=== PATIENT | female | born 1960 | race Caucasian/White ===

== ENCOUNTER 2018-01-28 08:46 | Day surgery (SDC) | payer BC ==
[~2018-01-28 08:46] MED LIST: Lactated Ringers 1,000 ML IV SCH; Lidocaine 1%/Sod Bicarbonate in NS 8.4% 1 ML Syringe IDERM PRN; Sodium Chloride 0.9% 10 ML Syringe FLUSH PRN
--- NOTE | 2018-01-28 10:35 | PCM.PREANE ---
Preanesthetic Assessment - Anesthesia/Transfusion/Family Hx Anesthesia History: No Prior Anesthesia Transfusion History: No Prior Transfusion(s) - Review of Systems General: No Symptoms Pulmonary: No Symptoms Cardiovascular: No Symptoms Gastrointestinal: No Symptoms Neurological: No Symptoms Other: Reports: None - Physical Assessment NPO Status Date: 01/27/18 NPO Status Time: 21:00 Pulse: 57 O2 Sat by Pulse Oximetry: 97 Respiratory Rate: 16 Blood Pressure: 128/69 Temperature: 98.7 C ASA Class: 2 Mental Status: Alert & Oriented x3 Airway Class: Mallampati = 1 Dentition: Reports: Normal Dentition Thyro-Mental Finger Breadths: 3 Mouth Opening Finger Breadths: 3 ROM/Head Extension: Full Lungs: Clear to Auscultation, Normal Respiratory Effort Cardiovascular: Regular Rate, Regular Rhythm - Lab Values: Laboratory Last Values POC Glucose 128 mg/dL (70-105) H 01/28/18 09:38 - Allergies Allergies/Adverse Reactions: Allergies Allergy/AdvReac Type Severity Reaction Status Date / Time amoxicillin [From Augmentin] Allergy Cannot Verified 01/27/18 14:03 Remember animal dander Allergy Cannot Verified 01/27/18 14:03 Remember bacitracin Allergy Cannot Verified 01/27/18 14:03 Remember clavulanic acid Allergy Cannot Verified 01/27/18 14:03 [From Augmentin] Remember doxazosin [From Cardura] Allergy Cannot Verified 01/27/18 14:03 Remember lisinopril Allergy Cannot Verified 01/27/18 14:03 Remember Sulfa (Sulfonamide Allergy Rash Verified 01/27/18 14:03 Antibiotics) zinc oxide Allergy Cannot Verified 01/27/18 14:03 Remember - Anesthesia Plan Beta Shashi: Atenolol Med Last Dose Date: 01/28/18 Med Last Dose Time: 07:30 - Acknowledgements Anesthesia Type Planned: MAC Pt an Appropriate Candidate for the Planned Anesthesia: Yes Alternatives and Risks of Anesthesia Discussed w Pt/Guardian: Yes Pt/Guardian Understands and Agrees with Anesthesia Plan: Yes PreAnesthesia Questionnaire HEENT History: Reports: Impaired Vision Cardiovascular History: Reports: High Cholesterol, Hypertension, Other (See Below) Other Cardiovascular History: edema Respiratory History: Reports: Other (See Below) Other Respiratory History: cough, not bothersome for pt at this time Gastrointestinal History: Reports: Gastritis, GERD (treated successfully with Prilosec), Other (See Below) Other Gastrointestinal History: c diff history Genitourinary History: Reports: None [employer]IST History: Reports: None Musculoskeletal History: Reports: Other (See Below) Other Musculoskeletal History: polymyalgia rheumatica Neurological History: Reports: None Psychiatric History: Reports: Addiction, Depression Endocrine/Metabolic History: Reports: Diabetes, Type II (BS 128) Other Endocrine/Metabolic History: Prediabetic, but was told that she was not diabetic Hematologic History: Reports: None Immunologic History: Reports: None Oncologic (Cancer) History: Reports: None Dermatologic History: Reports: Other (See Below) Other Dermatologic History: eczema - Infectious Disease History Infectious Disease History: Reports: C-Difficile - Past Surgical History Head Surgeries/Procedures: Reports: None (no previous surgeries) HEENT Surgical History: Reports: None Cardiovascular Surgical History: Reports: None Respiratory Surgical History: Reports: None GI Surgical History: Reports: None Female Surgical History: Reports: None Male Surgical History: Reports: None Endocrine Surgical History: Reports: None Neurological Surgical History: Reports: None Musculoskeletal Surgical History: Reports: None Oncologic Surgical History: Reports: None - SUBSTANCE USE Smoking Status *Q: Never Smoker Recreational Drug Use History: No - HOME MEDS Home Medications: Home Meds Olmesartan [Benicar] 20 mg PO DAILY 03/04/15 [History] ALPRAZolam [Xanax] 0.25 mg PO Q6H PRN 05/27/16 [History] Betamethasone/Propylene Glyc [Betamethasone DP Aug 0.05%] 1 applic TP BID PRN [History] Multivitamin/Iron/Folic Acid [Centrum Complete Multivit] 1 each PO DAILY [History] Sertraline [Zoloft] 50 mg PO DAILY 05/27/16 [History] Atenolol [Tenormin] 25 mg PO DAILY 01/27/18 [History] Cyanocobalamin (Vitamin B-12) [Vitamin B-12] 1,000 mcg PO DAILY 01/27/18 [ History] Omeprazole Magnesium [Prilosec Otc] 20 mg PO DAILY 01/27/18 [History] Rosuvastatin [Crestor] 10 mg PO DAILY 01/27/18 [History] metFORMIN [Glucophage] 2,000 mg PO DAILY 01/27/18 [History] predniSONE [Prednisone] 10 mg PO DAILY 01/27/18 [History] - CURRENT (IN HOUSE) MEDS Current Meds: Current Medications Lactated Ringer's (Ringers, Lactated) 1,000 mls @ 125 mls/hr IV ASDIRECTED DOMENIC Stop: 01/28/18 23:00 Lidocaine/Sodium Bicarbonate (Buffered Lidocaine 1% In Ns 8.4%) 0.25 ml IDERM ONETIME PRN PRN Reason: Prior to IV Start Stop: 01/28/18 18:00 Sodium Chloride (Saline Flush) 10 ml FLUSH ASDIRECTED PRN PRN Reason: Keep Vein Open Stop: 01/28/18 18:00
[2018-01-28] MEDS ORDERED: Lidocaine 1% 4 ML ONE (10:48)
[2018-01-28] MEDS ORDERED: Propofol 200 MG/20 ML SDV ONE (10:48)
--- NOTE | 2018-01-28 12:04 | PCM.OPNOTE ---
- General Post-Op/Procedure Note Date of Surgery/Procedure: 01/28/18 Operative Procedure(s): colonoscopy to cecum with polypectomy Findings: transverse colon polyp and rectal polyp Pre Op Diagnosis: positive colorectal cancer screening test Post-Op Diagnosis: same Anesthesia Technique: MAC Primary Surgeon: Verónica Mccoy Anesthesia Provider: Pili Uribe Output, Urine Amount: 0 EBL in mLs: 0 Drain/Tube Comments:: none Complications: none apparent Condition: Good
--- NOTE | 2018-01-28 12:05 | PCM.PRNOTE ---
- Free Text/Narrative Note: Operative Report Date of Surgery/Procedure: January 28, 2018 Operative Procedure: Colonoscopy to cecum with polypectomy Pre Op Diagnosis: colorectal cancer screening with positive colorectal cancer screening test Post-Op Diagnosis: Same Surgeon: Verónica Mccoy Anesthesia Technique: MAC Anesthesia Provider: Pelon Uribe CRNA IV Fluid Replacement, Intraop: See anesthesia record Output, Urine Amount: 0 cc EBL : 0 cc Findings: Transverse colon polyp and rectal polyp Specimens: Transverse colon polyp and rectal polyp Indication: The patient is a 57 year-old lady who presented to the outpatient clinic requesting colorectal cancer screening. She had undergone an additional colorectal cancer screening test that was positive and was seeking a colonoscopy. We discussed the procedure of a diagnostic colonoscopy including the polypectomy and biopsy. Risks of bleeding and perforation were discussed, the patient understood and wished to proceed. Written and consent was obtained Description of the procedure: The patient was brought to the endoscopy suite and placed in the left lateral decubitus position. Appropriate monitors were applied. The patient was given MAC anesthesia. An anorectal examination was performed, revealing external skin tags. The scope was placed into the rectum and advanced to cecum with no difficulty requiring. The patients cecum was entered, and the ileocecal valve and appendiceal orifice were identified and normal. At this point, the scope was withdrawn, paying careful attention to the mucosa. The patient had adequate bowel prep, allowing for visualization of 80-85% of the mucosa. The patient did have several episodes of coughing and colonic spasm during the procedure which did not allow for optimal evaluation of the mucosa. A transverse colon polyp was noted and removed with cold biopsy forceps. In addition, a rectal polyp was found and biopsied with cold biopsy forceps. These specimens for were sent for routine pathology. In the rectum, the scope was retroflexed and no other abnormalities were noted, except for some hemorrhoidal tissue. The scope was placed back in the lumen and the excess air was aspirated. The patient tolerated the procedure well. Complications: none apparent Condition: Good, transported to PACU in stable condition Verónica Mccoy MD General Surgery
--- NOTE | 2018-01-28 12:09 | PCM48HPAN ---
Post Anesthesia Note - EVALUATION WITHIN 48HRS OF ANESTHETIC Vital Signs in Normal Range: Yes Patient Participated in Evaluation: Yes Respiratory Function Stable: Yes Airway Patent: Yes Cardiovascular Function Stable: Yes Hydration Status Stable: Yes Pain Control Satisfactory: Yes Nausea and Vomiting Control Satisfactory: Yes Mental Status Recovered: Yes Pulse Rate: 68 SaO2: 99 Resp Rate: 20 Temperature: 98 C Blood Pressure: 103/64
[2018-01-28 13:26] VITALS: BP 112/69
== END 2018-01-28 13:00 | disposition home or self-care (01) ==
LOC: JD.SDS 08:46
PROVIDERS: ATTEND Surgery
DX: Z12.11 Encounter for screening for malignant neoplasm of colon (principal); D12.8 Benign neoplasm of rectum; K63.5 Polyp of colon; K64.9 Unspecified hemorrhoids; I10 Essential (primary) hypertension; M35.3 Polymyalgia rheumatica; E11.9 Type 2 diabetes mellitus without complications; E78.00 Pure hypercholesterolemia, unspecified; K29.30 Chronic superficial gastritis without bleeding; Z79.84 Long term (current) use of oral hypoglycemic drugs; Z79.899 Other long term (current) drug therapy; Z88.1 Allergy status to other antibiotic agents; Z88.2 Allergy status to sulfonamides; Z88.8 Allergy status to other drugs, medicaments and biological substances; Z91.048 Other nonmedicinal substance allergy status
CPT/HCPCS: 45380; 82962; J2704; J7120; 00811; J2001

== ENCOUNTER 2023-09-21 23:55 | Emergency (ER) | payer BC ==
[2023-09-22 00:12] LABS: BASOPHILS PERCENT AUTO 0.5 % (0.0-1.0); EOSINOPHILS ABSOLUTE AUTO 0.1 K/mm3 (0.0-0.4); EOSINOPHILS PERCENT AUTO 1.2 % (0.0-6.0); HEMATOCRIT 36.1 % (37.0-47.0); HEMOGLOBIN 12.3 gm/dl (12.0-16.0); IMMATURE GRAN ABSOLUTE AUTO 0.02 K/mm3 (0.00-0.05); IMMATURE GRAN PERCENT AUTO 0.2 % (0.0-0.4); LYMPHOCYTES ABSOLUTE AUTO 1.3 K/mm3 (1.0-4.8); LYMPHOCYTES PERCENT AUTO 16.2 % (24.0-44.0); MEAN CORPUSCULAR HEMOGLOBIN 35.2 pg (28.0-32.0); MEAN CORPUSCULAR HGB CONC 34.1 g/dl (32.0-36.0); MEAN CORPUSCULAR VOLUME 103.4 fl (83.0-99.0); MEAN PLATELET VOLUME 9.5 fl (9.4-12.3); MONOCYTES ABSOLUTE AUTO 0.5 K/mm3 (0.0-0.8); MONOCYTES PERCENT AUTO 6.1 % (0.0-8.0); NEUTROPHILS ABSOLUTE AUTO 6.1 K/mm3 (1.8-7.7); NEUTROPHILS PERCENT AUTO 75.8 % (41.0-71.0); PLATELET COUNT,PLT 226 K/mm3 (150-400); RED BLOOD CELL COUNT 3.49 M/mm3 (4.10-5.30); WHITE BLOOD CELL COUNT,WBC 8.07 K/mm3 (3.9-11.3)
[2023-09-22 00:32] LABS: ALBUMIN 3.6 g/dl (3.4-5.0); ANION GAP 22.8 (5-15); BILIRUBIN TOTAL 0.4 mg/dL (0.2-1.0); CALCIUM 9.9 mg/dL (8.5-10.1); CREATININE 1.9 mg/dL (0.55-1.02); EST CRCL DRUG DOSING (CG) 27.27 mL/min; POTASSIUM,K 3.8 mEq/L (3.5-5.1); PROTEIN TOTAL,TP 7.2 g/dl (6.4-8.2)
[2023-09-22 00:34] LABS: INR 0.98; PROTHROMBIN TIME 10.5 SECONDS (9.7-12.0)
[2023-09-22 00:35] LABS: PTT,PARTIAL THROMBOPLSTIN TIME 26.2 SECONDS (21.7-31.4)
[2023-09-22] MEDS: Lidocaine/Epineph/Tetracaine 3 ML Syringe TOP ONE (00:41)
[2023-09-22] MEDS: Sodium Chloride 0.9% 1,000 ML IV ONE (02:04)
[2023-09-22] MEDS: Sodium Chloride 0.9% 10 ML Syringe FLUSH PRN (02:06)
[2023-09-22 05:41] VITALS: BP 112/76; PULSE 77
== END 2023-09-22 03:40 | disposition home or self-care (01) ==
LOC: JD.ED 23:55
DX: S01.01XA Laceration without foreign body of scalp, initial encounter (principal); F10.120 Alcohol abuse with intoxication, uncomplicated; I10 Essential (primary) hypertension; E78.00 Pure hypercholesterolemia, unspecified; E11.9 Type 2 diabetes mellitus without complications; K21.9 Gastro-esophageal reflux disease without esophagitis; Z88.0 Allergy status to penicillin; Z91.048 Other nonmedicinal substance allergy status; Z88.1 Allergy status to other antibiotic agents; Z88.2 Allergy status to sulfonamides; Z88.8 Allergy status to other drugs, medicaments and biological substances; Z79.84 Long term (current) use of oral hypoglycemic drugs; Z79.899 Other long term (current) drug therapy; Y90.9 Presence of alcohol in blood, level not specified; W01.198A Fall on same level from slipping, tripping and stumbling with subsequent striking against other object, initial encounter
CPT/HCPCS: 12002; 36415; 70450; 80053; 80307; 85025; 85610; 85730; 93005; 96360; 99284; A9270; J3490; J7030; 93010; 99283

== ENCOUNTER 2023-09-30 09:26 | Emergency (ER) | payer BC ==
[2023-09-30 09:44] VITALS: PULSE 70
[2023-09-30 10:20] VITALS: BP 118/70
== END 2023-09-30 10:15 | disposition left against medical advice (07) ==
LOC: JD.ED 09:26
DX: S01.01XD Laceration without foreign body of scalp, subsequent encounter (principal); X58.XXXD Exposure to other specified factors, subsequent encounter
CPT/HCPCS: 99281

== ENCOUNTER 2024-03-21 07:03 | Emergency (ER) | payer BC ==
[2024-03-21] MEDS ORDERED: Sodium Chloride 0.9% 10 ML Syringe FLUSH PRN (07:23)
[2024-03-21] MEDS: Sodium Chloride 0.9% 500 ML IV SCH (07:38)
[2024-03-21] MEDS: Ondansetron 4 MG/2 ML SDV IVPUSH ONE (07:38)
[2024-03-21 08:04] LABS: BASOPHILS PERCENT AUTO 0.6 % (0.0-1.0); EOSINOPHILS ABSOLUTE AUTO 0.1 K/mm3 (0.0-0.4); EOSINOPHILS PERCENT AUTO 1.2 % (0.0-6.0); HEMATOCRIT 38.8 % (37.0-47.0); HEMOGLOBIN 13.7 gm/dl (12.0-16.0); IMMATURE GRAN ABSOLUTE AUTO 0.03 K/mm3 (0.00-0.05); IMMATURE GRAN PERCENT AUTO 0.5 % (0.0-0.4); LYMPHOCYTES ABSOLUTE AUTO 0.8 K/mm3 (1.0-4.8); LYMPHOCYTES PERCENT AUTO 11.4 % (24.0-44.0); MEAN CORPUSCULAR HEMOGLOBIN 34.4 pg (28.0-32.0); MEAN CORPUSCULAR HGB CONC 35.3 g/dl (32.0-36.0); MEAN CORPUSCULAR VOLUME 97.5 fl (83.0-99.0); MONOCYTES ABSOLUTE AUTO 0.5 K/mm3 (0.0-0.8); NEUTROPHILS ABSOLUTE AUTO 5.2 K/mm3 (1.8-7.7); NEUTROPHILS PERCENT AUTO 78.3 % (41.0-71.0); PLATELET COUNT,PLT 267 K/mm3 (150-400); RED BLOOD CELL COUNT 3.98 M/mm3 (4.10-5.30); WHITE BLOOD CELL COUNT,WBC 6.65 K/mm3 (3.9-11.3)
[2024-03-21 08:19] LABS: A/G RATIO 0.9 (1-2); ALANINE AMINOTRANSFERASE,ALT 28 U/L (14-59); ALBUMIN 3.4 g/dl (3.4-5.0); ALKALINE PHOSPHATASE 93 U/L (46-116); ASPARTATE AMNIOTRANSFERASE,AST 106 U/L (15-37); BILIRUBIN TOTAL 0.9 mg/dL (0.2-1.0); BLOOD UREA NITROGEN,BUN 38 mg/dL (7-18); CALCIUM 10.1 mg/dL (8.5-10.1); CARBON DIOXIDE,CO2 22 mEq/L (21-32); CHLORIDE,CL 88 mEq/L (98-107); ESTIMATED GFR 28 mL/min (>60); GLUCOSE RANDOM 86 mg/dL (70-99); LIPASE 131 U/L (16-77); PROTEIN TOTAL,TP 7.2 g/dl (6.4-8.2); SODIUM,NA 128 mEq/L (136-145); TROPONIN I HIGH SENSITIVITY 9 pg/mL (<=51)
[2024-03-21 10:54] LABS: APPEARANCE,URINE CLEAR (Clear); BILIRUBIN,URINE NEGATIVE (Negative); COLOR,URINE YELLOW (Yellow); GLUCOSE,URINE NEGATIVE (Negative); KETONES,URINE 1+ (Negative); LEUKOCYTE ESTERASE,URINE NEGATIVE (Negative); NITRITE,URINE NEGATIVE (Negative); OCCULT BLOOD,URINE TRACE-INTACT (Negative); PROTEIN,URINE NEGATIVE (Negative); UROBILINOGEN,URINE 0.2 (0.2-1.0)
[2024-03-21 11:03] LABS: BACTERIA,URINE FEW /hpf (FEW); HYALINE CASTS,URINE 0-5 /lpf (0-5); MUCUS,URINE FEW /hpf (FEW); WBC,URINE 0-5 /hpf (0-5)
[2024-03-21 11:49] VITALS: PULSE 73
[2024-03-21 13:28] VITALS: BP 108/66
== END 2024-03-21 13:26 | disposition home or self-care (01) ==
LOC: JD.ED 07:03
DX: E87.1 Hypo-osmolality and hyponatremia (principal); E78.00 Pure hypercholesterolemia, unspecified; I10 Essential (primary) hypertension; E11.9 Type 2 diabetes mellitus without complications; Z79.84 Long term (current) use of oral hypoglycemic drugs; Z79.899 Other long term (current) drug therapy; Z88.0 Allergy status to penicillin; Z91.048 Other nonmedicinal substance allergy status; Z88.1 Allergy status to other antibiotic agents; Z88.2 Allergy status to sulfonamides; Z88.8 Allergy status to other drugs, medicaments and biological substances
CPT/HCPCS: 36415; 80053; 80307; 81001; 83690; 84484; 85025; 93005; 96361; 96374; 99285; J2405; J7040

== ENCOUNTER 2024-05-16 17:12 | Emergency (ER) | payer BC | END 2024-05-16 17:50 | disposition left against medical advice (07) | LOC: JD.ED 17:12 | DX: Z53.21 Procedure and treatment not carried out due to patient leaving prior to being seen by health care provider (principal) ==

== ENCOUNTER 2025-02-06 15:48 | Emergency (ER) | payer BC, MEDICAID ==
[2025-02-06 16:58] LABS: BASOPHILS ABSOLUTE AUTO 0.0 K/mm3 (0.0-0.2); BASOPHILS PERCENT AUTO 0.6 % (0.0-1.0); EOSINOPHILS ABSOLUTE AUTO 0.1 K/mm3 (0.0-0.4); EOSINOPHILS PERCENT AUTO 1.5 % (0.0-6.0); IMMATURE GRAN ABSOLUTE AUTO 0.02 K/mm3 (0.00-0.05); IMMATURE GRAN PERCENT AUTO 0.6 % (0.0-0.4); LYMPHOCYTES ABSOLUTE AUTO 0.9 K/mm3 (1.0-4.8); LYMPHOCYTES PERCENT AUTO 25.4 % (24.0-44.0); MEAN PLATELET VOLUME 8.8 fl (9.4-12.3); MONOCYTES ABSOLUTE AUTO 0.3 K/mm3 (0.0-0.8); MONOCYTES PERCENT AUTO 8.8 % (0.0-8.0); NEUTROPHILS ABSOLUTE AUTO 2.2 K/mm3 (1.8-7.7); NEUTROPHILS PERCENT AUTO 63.1 % (41.0-71.0); NRBC ABSOLUTE 0.00 (0.00-0.02); NRBC PERCENT 0.0 % (0.0-0.2); PLATELET COUNT,PLT 128 K/mm3 (150-400); RED BLOOD CELL COUNT 3.59 M/mm3 (4.10-5.30); WHITE BLOOD CELL COUNT,WBC 3.42 K/mm3 (3.9-11.3)
[2025-02-06 17:11] LABS: APPEARANCE,URINE CLEAR (Clear); GLUCOSE,URINE NEGATIVE (Negative); OCCULT BLOOD,URINE TRACE-INTACT (Negative)
[2025-02-06 17:19] LABS: EPITHELIAL CELLS,URINE 0-5 /hpf (0-5)
[2025-02-06 17:20] LABS: AMPHETAMINES SCREEN, URINE NEGATIVE (CUTOFF=500); BUPRENORPHINE SCREEN,URINE NEGATIVE (CUTOFF=10); METHADONE SCREEN, URINE NEGATIVE (CUTOFF=200); METHAMPHETAMINES SCREEN, URINE NEGATIVE (CUTOFF=500); OXYCODONE SCREEN,URINE NEGATIVE (CUT0FF=100); THC SCREEN,URINE 20 NG/ML NEGATIVE (CUTOFF=50)
[2025-02-06 17:21] LABS: A/G RATIO 1.1 (1-2); ALANINE AMINOTRANSFERASE,ALT 20.0 U/L (14-59); ASPARTATE AMNIOTRANSFERASE,AST 61.0 U/L (15-37); BILIRUBIN TOTAL 0.7 mg/dL (0.2-1.0); BLOOD UREA NITROGEN,BUN 15.0 mg/dL (7-18); CARBON DIOXIDE,CO2 27.0 mEq/L (21-32); CHLORIDE,CL 97.0 mEq/L (98-107); CREATINE KINASE,CK 60.0 U/L (26-192); CREATININE 1.1 mg/dL (0.55-1.02); EST CRCL DRUG DOSING (CG) 40.86 mL/min; ESTIMATED GFR 56.0 mL/min (>60); ETHANOL BLOOD MEDICAL 0.17 gm% (0.00); GLUCOSE RANDOM 100.0 mg/dL (70-99); POTASSIUM,K 4.2 mEq/L (3.5-5.1); PROTEIN TOTAL,TP 6.6 g/dl (6.4-8.2); SODIUM,NA 138.0 mEq/L (136-145); TROPONIN I HIGH SENSITIVITY 7.0 pg/mL (<=51)
[2025-02-06] MEDS: Magnesium Sulf/Wat 4 GM/50 mL 4 GM in Premix Bag 1 BAG IV STA (18:04)
[2025-02-06 19:18] VITALS: BP 144/77; PULSE 78
== END 2025-02-06 19:28 | disposition home or self-care (01) ==
LOC: JD.ED 15:48
DX: E83.42 Hypomagnesemia (principal); R29.6 Repeated falls; I10 Essential (primary) hypertension; E11.9 Type 2 diabetes mellitus without complications; K21.9 Gastro-esophageal reflux disease without esophagitis; Z88.8 Allergy status to other drugs, medicaments and biological substances; Z88.1 Allergy status to other antibiotic agents; Z88.2 Allergy status to sulfonamides; Z79.899 Other long term (current) drug therapy
CPT/HCPCS: 36415; 70450; 80053; 80306; 80307; 81001; 82550; 83690; 83735; 84484; 85025; 93005; 96361; 96365; 99285; J3475; J7030; 93010; 99283